=== PATIENT | male | born 1975 | race American Indian/Alaskan Native ===

== ENCOUNTER 2020-12-31 22:44 | Emergency (ER) | payer SELFPAY ==
--- NOTE | 2020-12-31 23:37 | Event Note ---
ED Screening Note Date of service: 12/31/20 Time: 23:36 ED Screening Note: Patient complains of bilateral sided abdominal pain x4 months States worsening over the past few days Denies past medical history No stool changes per patient Heart rate noted to be 124 This initial assessment/diagnostic orders/clinical plan/treatment(s) is/are subject to change based on patients health status, clinical progression and re- assessment by fellow clinical providers in the ED. Further treatment and workup at subsequent clinical providers discretion. Patient/guardian urged not to elope from the ED as their condition may be serious if not clinically assessed and managed. Initial orders include: Labs CT
[2020-12-31 23:52] LABS: Basophils # (Auto) 0.1 K/mm3 (0.0-0.1); Basophils % (Auto) 0.6 % (0.0-1.8); Eosinophils # (Auto) 0.1 K/mm3 (0.0-0.4); Eosinophils % (Auto) 0.6 % (0.0-4.3); Hematocrit 42.6 % (35.5-45.6); Hemoglobin 14.1 gm/dl (11.8-15.2); Lymphocytes # (Auto) 0.9 K/mm3 (1.2-5.4); Lymphocytes % (Auto) 9.6 % (13.4-35.0); Mean Corpuscular HGB Conc 33 % (32-34); Mean Corpuscular Volume 87 fl (84-94); Monocytes # (Auto) 0.5 K/mm3 (0.0-0.8); Monocytes % (Auto) 5.1 % (0.0-7.3); Platelet Count 231 K/mm3 (140-440); Red Blood Count 4.88 M/mm3 (3.65-5.03); Red Cell Distribution Width 15.1 % (13.2-15.2)
[2021-01-01 00:11] LABS: Alanine Aminotransferase 16 units/L (7-56); Albumin 4.1 g/dL (3.9-5); BUN/Creatinine Ratio 13; Blood Urea Nitrogen 13 mg/dL (9-20); Calcium 9.2 mg/dL (8.4-10.2); Hemolysis Index 7
[2021-01-01] MEDS ORDERED: KETOROLAC 30 MG/1 ML INJ IV ONE (02:42)
[2021-01-01] MEDS ORDERED: MORPHINE 4 MG/1 ML INJ IV ONE (02:42)
[2021-01-01] MEDS ORDERED: ONDANSETRON 4 MG/2 ML INJ IV ONE (02:42)
--- NOTE | 2021-01-01 02:47 | Emergency Department Report ---
ED Back Pain/Injury HPI - General Chief Complaint: Abdominal Pain Stated Complaint: BILATERAL SIDE AND BACK PAIN Time Seen by Provider: 12/31/20 23:25 Source: patient Limitations: No Limitations - History of Present Illness Initial Comments: CC: back pain, side pain HPI: This is a 45 yo male with hx of asthma who presents with lowe back pain for 4 months. Pain is squeezing, aching. Worse with movement. He has been unable to work due to pain. Denies fever, dysuria, hematuria, leg weakness. Took pain pill at home "5 mg" unknown name. No bowel or urinary incontinence. MD Complaint: back pain -: Gradual, month(s) (4 months) Place: home, work Severity: severe Severity scale (0 -10): 10 Quality: dull, aching Consistency: constant Worsens With: movement, sitting upright Associated Symptoms: denies other symptoms - Related Data Previous Rx's Medication Instructions Recorded Last Taken Type Magnesium Citrate [Citrate of 300 ml PO NOW #1 bottle 01/01/21 Unknown Rx Magnesia] oxyCODONE /ACETAMINOPHEN [Percocet 1 tab PO Q6H PRN #10 tab 01/01/21 Unknown Rx 5/325] Allergies Allergy/AdvReac Type Severity Reaction Status Date / Time acetaminophen [From Tylenol] Allergy Unknown Verified 12/31/20 23:27 iodine Allergy Unknown Verified 12/31/20 23:27 ED Review of Systems ROS: Stated complaint: BILATERAL SIDE AND BACK PAIN Other details as noted in HPI Comment: All other systems reviewed and negative Constitutional: denies: fever, malaise Respiratory: denies: cough, shortness of breath Gastrointestinal: denies: abdominal pain, nausea, vomiting Musculoskeletal: back pain. denies: joint swelling, arthralgia, myalgia ED Past Medical Hx - Past Medical History Previous Medical History?: Yes Hx Asthma: Yes - Surgical History Past Surgical History?: Yes Hx Appendectomy: Yes - Social History Smoking Status: Current Every Day Smoker - Medications Home Medications: Home Medications Medication Instructions Recorded Confirmed Last Taken Type Magnesium Citrate [Citrate of 300 ml PO NOW #1 bottle 01/01/21 Unknown Rx Magnesia] oxyCODONE /ACETAMINOPHEN [Percocet 1 tab PO Q6H PRN #10 tab 01/01/21 Unknown Rx 5/325] ED Physical Exam - General Limitations: No Limitations General appearance: alert, in no apparent distress, other (uncomfortable, laying in right lateral decubitus position) - Head Head exam: Present: atraumatic, normocephalic - Eye Eye exam: Present: normal appearance - ENT ENT exam: Present: mucous membranes moist - Neck Neck exam: Present: normal inspection, full ROM - Respiratory Respiratory exam: Present: normal lung sounds bilaterally. Absent: respiratory distress, wheezes, rales, rhonchi - Cardiovascular Cardiovascular Exam: Present: regular rate, normal rhythm, normal heart sounds. Absent: systolic murmur, diastolic murmur, rubs, gallop - GI/Abdominal GI/Abdominal exam: Present: soft, normal bowel sounds. Absent: distended, tenderness, guarding, rebound - Rectal Rectal exam: Present: deferred - Extremities Exam Extremities exam: Present: normal inspection - Back Exam Back exam: Present: normal inspection, muscle spasm, paraspinal tenderness. Absent: CVA tenderness (R), CVA tenderness (L) - Neurological Exam Neurological exam: Present: alert, oriented X3 - Psychiatric Psychiatric exam: Present: normal affect, normal mood - Skin Skin exam: Present: warm, dry, intact, normal color. Absent: rash ED Course Vital Signs 12/31/20 01/01/21 01/01/21 23:23 02:20 03:18 Temperature 98.6 F Pulse Rate 124 H 103 H 100 H Respiratory 18 18 18 Rate Blood Pressure 136/91 Blood Pressure 128/76 125/74 [Left] O2 Sat by Pulse 95 98 97 Oximetry 01/01/21 01/01/21 04:00 05:00 Temperature Pulse Rate 86 93 H Respiratory 20 17 Rate Blood Pressure Blood Pressure 152/91 119/71 [Left] O2 Sat by Pulse 95 98 Oximetry ED Medical Decision Making - Lab Data Result diagrams: 12/31/20 23:29 12/31/20 23:29 Laboratory Results - last 24 hr 12/31/20 12/31/20 23:29 23:29 WBC 9.9 RBC 4.88 Hgb 14.1 Hct 42.6 MCV 87 MCH 29 MCHC 33 RDW 15.1 Plt Count 231 Lymph % (Auto) 9.6 [place] % (Auto) 5.1 Eos % (Auto) 0.6 Baso % (Auto) 0.6 Lymph # (Auto) 0.9 [place] # (Auto) 0.5 Eos # (Auto) 0.1 Baso # (Auto) 0.1 Seg Neutrophils % 84.1 H Seg Neutrophils # 8.3 H Sodium 137 Potassium 3.9 Chloride 99.4 Carbon Dioxide 25 Anion Gap 17 BUN 13 Creatinine 1.0 Estimated GFR > 60 BUN/Creatinine Ratio 13 Glucose 281 H Calcium 9.2 Total Bilirubin 0.20 AST 13 ALT 16 Alkaline Phosphatase 76 Total Protein 7.3 Albumin 4.1 Albumin/Globulin Ratio 1.3 Lipase 31 - Radiology Data CT abdomen pelvis without con INDICATION: bilateral side pain radiating to back x months. TECHNIQUE: All CT scans at this location are performed using the following dose modulation technique: Automated exposure control. CONTRAST: None. COMPARISON: None available. CT ABDOMEN: The parenchymal organs are unremarkable in appearance. Negative for abdominal mass, fluid or inflammation. The bowel is not dilated or thickened. Mild diastases is seen at the rectus muscles above the umbilicus. A fat- containing umbilical hernia is small. CT PELVIS: Negative for pelvic mass, fluid collection or inflammation. Status post previous appendectomy. Colonic stool is moderate. IMPRESSION: 1. Moderate colonic stool. 2. Negative for obstruction or localized inflammatio - Medical Decision Making Musculoskeletal back pain: Neurologically intact, no red flags such as trauma, advanced age, IV drug use, urinary or bowel symptoms. CBC chemistry within normal limits. CT abdomen pelvis without evidence of or intra-abdominal abnormality. Constipation seen on CT. Patient prescribed [place] for musculoskeletal back pain, citrate for constipation Critical care attestation.: If time is entered above; I have spent that time in minutes in the direct care of this critically ill patient, excluding procedure time. ED Disposition Clinical Impression: Back pain, Constipation Disposition: TO HOME OR SELFCARE Is pt being admited?: No Does the pt Need Aspirin: No Condition: Stable Instructions: Acute Back Pain, Adult, Constipation, Adult Prescriptions: Magnesium Citrate [Citrate of Magnesia] 300 ml PO NOW #1 bottle oxyCODONE /ACETAMINOPHEN [Percocet 5/325] 1 tab PO Q6H PRN #10 tab PRN Reason: Pain , Severe (7-10) Referrals: PRIMARY MD ANGELES [Primary Care Provider] - 3-5 Days THANIA RODRÍGUEZ MD [Staff Physician] - 3-5 Days
--- NOTE | 2021-01-01 03:10 | Cat Scan Report ---
CT abdomen pelvis without con INDICATION: bilateral side pain radiating to back x months. TECHNIQUE: All CT scans at this location are performed using the following dose modulation technique: Automated exposure control. CONTRAST: None. COMPARISON: None available. CT ABDOMEN: The parenchymal organs are unremarkable in appearance. Negative for abdominal mass, fluid or inflammation. The bowel is not dilated or thickened. Mild diastases is seen at the rectus muscles above the umbilicus. A fat-containing umbilical hernia i s small. CT PELVIS: Negative for pelvic mass, fluid collection or inflammation. Status post previous appendect monique. Colonic stool is moderate. IMPRESSION: 1. Moderate colonic stool. 2. Negative for obstruction or localized inflammation. Signer Name: Ramesh Clarke MD Signed: 01/01/2021 3:06 AM Workstation Name: [id number]
[2021-01-01 03:41] LABS: Bilirubin,Urine NEG (Negative); Blood,Urine MOD (Negative); Color,Urine Yellow (Yellow); Mucus,Urine FEW /HPF; Protein,Urine <15 mg/dL mg/dL (Negative); Urobilinogen,Urine < 2.0 mg/dL (<2.0)
[2021-01-01] MEDS ORDERED: oxyCODONE 5 MG TAB PO ONE (05:42)
[2021-01-01 06:37] VITALS: BP 130/78
== END 2021-01-01 06:38 | disposition home or self-care (01) ==
LOC: ED 22:44
DX: M54.5 Low back pain (principal); K59.00 Constipation, unspecified; J45.909 Unspecified asthma, uncomplicated; F17.200 Nicotine dependence, unspecified, uncomplicated; Z79.899 Other long term (current) drug therapy; Z91.041 Radiographic dye allergy status; Z88.8 Allergy status to other drugs, medicaments and biological substances; Z90.49 Acquired absence of other specified parts of digestive tract
CPT/HCPCS: 36415; 74177; 80053; 81001; 83690; 85025; 96374; 96375; 99284; J1885; J2270; J2405